=== PATIENT | male | born 1995 | race Caucasian/White ===

== ENCOUNTER 2018-05-06 14:33 | Emergency (ER) | payer MEDICAID ==
[~2018-05-06] VITALS: Wt 65.2 kg
[2018-05-06 14:37] VITALS: BP 135/79; PULSE 71; RESP 19
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
[2018-05-06] MEDS ORDERED: ACETAMINOPHEN 325 MG TAB PO ONE (15:30)
[2018-05-06] MEDS ORDERED: ACET325T33 PO (15:57)
[2018-05-06] MEDS ORDERED: BACL10TA PO (15:57)
== END 2018-05-06 16:33 | disposition home or self-care (01) ==
LOC: FTE 14:33
DX: M54.2 Cervicalgia (principal)
CPT/HCPCS: 72040; 73030; Z7502; Z7610